=== PATIENT | female | born 1985 | race Asian ===

== ENCOUNTER → 2016-09-24 | Day surgery (SDC) | payer OTHER ==
[2016-09-17 11:16] VITALS: Ht 160 cm; Wt 57.3 kg
[~2016-09-24] VITALS: Ht 160 cm; Wt 57.3 kg
[~2016-09-24] MED LIST: ATROPINE SULFATE 0.1 MG/ML 5ML SYR IV PRN; BACITRACIN OINT 15 GM TUBE ONE; BENZOIN SPRAY 118 ML BTL TOP ONE; BUPIVACAINE/EPINEPHRINE 0.25% 1:200,000 30 ML VIAL ONE; CEFAZOLIN 1000MG/55 ML D5W IV SCH; GELATIN SPONGE 12-7MM ONE; GELATIN SPONGE SZ 100 ONE; HYDR-5688 PO; HYDROCODONE/ACETAMOPHEN 5/325MG TAB PO PRN; LACTATED RINGER'S 1000ML 1,000 ML IV SCH; LIDOCAINE 2% JELLY 5 ML TUBE EXT ONE; LIDOCAINE HCL 2% 2 ML VIAL (20MG/ML) ONE; MIDAZOLAM HCL 1 MG/ML 2ML VIAL ONE; ONDANSETRON INJ 2 MG/ML 2 ML VIAL IV PRN; PRENTAB26 PO; PROPOFOL IV EMULSION 10 MG/ML 20 ML VIAL IV ONE; PRT/20 PO; SODIUM CHLORIDE 0.9% 1000ML 1,000 ML IV SCH
--- NOTE | 2016-09-24 07:33 | History & Physical Bridge Note ---
H&P Re-Evaluation Bridge Note: I have examined the patient, reviewed the History & Physical and in the interval since the performance of the History & Physical I have noted the following changes of clinical significance: No changes noted
[2016-09-24 08:30] VITALS: TEMP 37.3
--- NOTE | 2016-09-24 08:32 | [facility] Operative Report ---
Operative Report Operative Date Sep 24, 2016. Pre-Operative Diagnosis Anal Skin Tags X2 Post-Operative Diagnosis same Procedure(s) Performed excision anal skin tags x [address] Jackson Wafer Substrate Tester Surgeon(s) Fabienne Matthews PA-C Estimated Blood Loss 5 ml Findings anal skin tags x 2 Specimens A.) Anal Skin Tags X2 Complication(s) None Disposition Recovery Room / PACU Description of Procedure After informed consent was obtained the patient's suite placed in supine position. IV sedation was administered by anesthesia and titrated to effect. after adequate sedation the patient was placed in the high lithotomy position with yellowfin stirrups. The rectal area was sterilely prepped and draped. Marcaine with epinephrine was injected around the skin lesions. There were 2 skin tags 1 at 11:00 and 1 at about 6:00. Once we had a good skin wheel i used a 15 blade scalpel to simply excise the skin tags. The wound was then reapproximated using 3-0 Monocryl in simple interrupted fashion. We left the tails long so that they would not cause skin irritation. Once we had both incisions completely closed i digitilized the rectum. There were no other abnormalities noted. We used some Gelfoam with lidocaine jelly to help with postoperative analgesia... We also placed some antibiotic ointment over the incisions. A judah-pad was placed. The patient placed back in the supine position awakened and transferred to recovery in stable condition I attest to the content of the Intraoperative Record and any orders documented therein. Any exceptions are noted below.
--- NOTE | 2016-09-24 08:40 | Discharge Instructions-SurgCtr ---
Discharge Instructions Date of Service Sep 24, 2016. Visit Reason for Visit: Anal Skin Tags Discharge Discharge Diagnosis / Problem: Anal Skin Tags Discharge Goals Goal(s): Decrease discomfort, Improve function Activity Recommendations Activity Limitations: as noted below Lifting Limitations: no more than 10 pounds Exercise/Sports Limitations: until after follow-up appointment May Resume Sexual Activity: after follow-up appointment Shower/Bathe: tomorrow Driving or Machine Use: resume 1 day after discharge Anesthesia . Post Anesthesia Instructions: If you have had General Anesthesia or IV Sedation: * Do not drive today. * Resume driving when surgeon permits. * Do not make important decisions or sign legal documents today. * Call surgeon for: 1. Temperature elevations greater than 101 degrees F. 2. Uncontrollable pain. 3. Excessive bleeding. 4. Persistent nausea and vomiting. 5. Medication intolerance (nausea, vomiting or rash). * For nausea and vomiting use only clear liquids such as: tea, soda, bouillon until nausea subsides, then gradually increase diet as tolerated. * If you have any concerns or questions, call your surgeon's office. If physician is unavailable and it is an emergency, call 911 or go to the nearest emergency room. . Instructions / Follow-Up Instructions / Follow-Up Post- Surgical Instructions: 1. Please take 3-4 sitz baths daily. This will help with the pain and inflammation. Dr. Jackson placed a sponge packing- this will eventually work its way out. You may discard this when it comes out. You may choose to wear a feminine pad daily to prevent discharge from getting on your underwear. 2. Please avoid spicy foods. 3. It is recommended that you take a daily over the counter stool softener. Avoid straining with bowel movements. 4. A prescription for pain medication has been provided to you. You may also use Ibuprofen for breakthrough pain. 5. Please call the office with any questions or concerns. Our phone number is [phone]. 6. Please follow-up with Dr. Jackson in the office in 2-3 weeks. Please call the office at [phone] to make an appointment if you do not have one already. Diet Recommendations Home Diet: no limitations, resume previous diet Procedures Procedures Performed: Anal Skin Tags Excision X2 Pending Studies Studies pending at discharge: yes List of pending studies: Pathology report. Medical Emergencies . Who to Call and When: Medical Emergencies: If at any time you feel your situation is an emergency, please call 911 immediately. . Non-Emergent Contact Non-Emergency issues call your: Primary Care Provider, Surgeon Call Non-Emergent contact if: temperature is above 101.5, your pain is not controlled, wound has increased drainage, wound has increased redness . . "Provider Documentation" section prepared by Mariana Matthews. . [place] Drug Monitoring Program Search Results: patient reviewed within database, no issues identified
--- NOTE | 2016-09-24 08:57 | Anesthesia Progress Nt - [facility] ---
Anesthesia Post Op Note Date & Time Sep 24, 2016 at 08:57 Vital Signs Pain Intensity: 0 Vital Signs Past 12 Hours Date Time Temp Pulse Resp B/P (MAP) Pulse Ox O2 Delivery O2 Flow Rate FiO2 09/24/16 08:30 37.3 83 20 96/63 (74) 98 Room Air 09/24/16 06:37 36.6 72 16 101/54 (70) 96 Room Air Notes Mental Status: alert / awake / arousable, participated in evaluation Pt Amnestic to Procedure: Yes Nausea / Vomiting: adequately controlled Pain: adequately controlled Airway Patency, RR, SpO2: stable & adequate BP & HR: stable & adequate Hydration State: stable & adequate Anesthetic Complications: no major complications apparent
[2016-09-24 09:10] VITALS: BP 97/56; PULSE 65; O2SAT 98
== END | disposition home or self-care (01) ==
LOC: X.SURG 06:24
PROVIDERS: ATTEND Surgery
DX: K64.4 Residual hemorrhoidal skin tags (principal)